=== PATIENT | male | born 1985 | race Caucasian/White ===

== ENCOUNTER 2018-06-02 21:25 | Inpatient (IN) | payer OTHER ==
[2018-06-03 02:45] LABS: ALT 49 U/L (21-72); AST 37 U/L (17-59); Albumin 4.6 g/dL (3.5-5.0); Alkaline Phosphatase 43 U/L (38-126); Anion Gap 13 mmol/L; Basophils % (A) 1 %; Blood Urea Nitrogen 15 mg/dL (9-20); Calcium 9.4 mg/dL (8.4-10.2); Carbon Dioxide 24 mmol/L (22-30); Chloride 104 mmol/L (98-107); Eosinophils # (A) 0.1 k/uL (0-0.7); Eosinophils % (A) 1 %; Glucose 82 mg/dL (74-99); HCT 48.6 % (39.0-53.0); Lymphocytes # (A) 2.7 k/uL (1.0-4.8); Lymphocytes % (A) 31 %; MCH 28.5 pg (25.0-35.0); MCV 86.4 fL (80.0-100.0); Mean Platelet Volume 7.8; Monocytes # (A) 0.5 k/uL (0-1.0); Monocytes % (A) 6 %; Neutrophils # (A) 5.3 k/uL (1.3-7.7); Neutrophils % (A) 60 %; Phosphorus 4.1 mg/dL (2.5-4.5); Platelet Count 210 k/uL (150-450); Potassium 4.1 mmol/L (3.5-5.1); RBC 5.63 m/uL (4.30-5.90); RDW 12.7 % (11.5-15.5); Sodium 141 mmol/L (137-145); Total Bilirubin 1.7 mg/dL (0.2-1.3); Total Protein 7.4 g/dL (6.3-8.2); WBC 8.8 k/uL (3.8-10.6)
[2018-06-03] MEDS ORDERED: VANCOMYCIN 1,750 MG in SODIUM CHLORIDE 0.9% 500 ML 500 ML IVPB ONE (03:00)
[2018-06-03] MEDS ORDERED: NALOXONE 0.4 MG/ML 1 ML VIAL IV PRN (07:04)
--- NOTE | 2018-06-03 07:20 | P.HPIM ---
History of Present Illness H&P Date: 06/03/18 Chief Complaint: Finger swelling 32-year-old male with no significant past medical history.. Patient presented the hospital with 6 day history of swollen left index finger patient reports that started as a small skin tag around the nail of the left index finger, that he was trying to remove ended up biting it to remove it and then later on he noticed that the nail bed was getting swollen painful and red he started taking [id number] pain medications without much benefit. Yesterday [facility] him B[facility] I recommended for him to go to the hospital. Patient reports associated chills but no fevers. Otherwise no similar symptoms in the past, denies any loss of function in his left. In the ER I&D was performed, he was started on antibiotic and admitted for orthopedic evaluation. Otherwise patient denies any chest pain trouble breathing fevers, nausea vomiting abdominal pain diarrhea, or any focal neurologic deficits. Review of Systems Pertinent positives as noted in HPI. All other systems were reviewed and are negative Past Medical History Additional Past Medical History / Comment(s): insomnia, "eating disorder- compulsive eater" History of Any Multi-Drug Resistant Organisms: None Reported Past Surgical History: Orthopedic Surgery, Tonsillectomy Additional Past Surgical History / Comment(s): right elbow Past Psychological History: Depression Smoking Status: Former smoker Past Alcohol Use History: Rare Past Drug Use History: Marijuana - Past Family History family Family Medical History: No Reported History Medications and Allergies Home Medications Medication Instructions Recorded Confirmed Type No Known Home Medications 02/04/15 02/04/15 History Allergies Allergy/AdvReac Type Severity Reaction Status Date / Time No Known Allergies Allergy Verified 02/04/15 19:04 Physical Exam Vitals: Intake and Output 06/02/18 06/03/18 06/03/18 22:59 06:59 14:59 Other: Weight 113 kg Constitutional: No acute distress, conversant, pleasant Eyes: Anicteric sclerae, moist conjunctiva, no lid-lag Pupils equal round reactive to light ENMT: NC/AT Oropharynx clear, no erythema, exudates Neck: Supple, FROM, no masses, or JVD No carotid bruits No thyromegaly Lungs: Clear to auscultation Clear to percussion Normal respiratory effort, no accessory muscle use Cardiovascular: Heart regular in rate and rhythm, No murmurs, gallops, or rubs No peripheral edema Abdominal: Soft Nontender, no guarding, rebound or rigidity Abdomen moving with respiration Normoactive bowel sounds No hepatomegaly, No splenomegaly No palpable mass No abdominal wall hernia noted Skin: There is swelling of the distal phalanx of the left index finger tender to palpation status post I&D capillary refill is immediate sensation is intact. Continues to drain pus. Otherwise, Normal temperature, tone, texture, turgor No induration No subcutaneous nodules No rash, lesions No ulcers Extremities: No digital cyanosis No clubbing Pedal pulses intact and symmetrical Radial pulses intact and symmetrical No calf tenderness Psychiatric: Alert and oriented to person, place and time Appropriate affect fair judgment Neuro Muscles Strength 5/5 in all 4 extremities Sensation to light touch grossly present throughout Cranial nerves II-XII grossly intact No focal sensory deficits Lymphatics: no palpable cervical or supraclavicular , or inguinal lymph nodes Results CBC & Chem 7: 06/03/18 00:03 06/03/18 00:03 Labs: Abnormal Lab Results - Last 24 Hours (Table) 06/03/18 Range/Units 00:03 Total Bilirubin 1.7 H (0.2-1.3) mg/dL Assessment and Plan Assessment: 32-year-old male with no significant past medical history admitted under observation with anticipated length of stay less than 48 hours due to abscess of the left index finger of 6 days' duration and worsening pain. Patient underwent I&D in the ED and was admitted for further evaluation by or so patient was started on antibiotics Plan: Paronychia, with abscess formation s/p I & D Status post I&D Discontinue Vanco, start patient on Unasyn Pain control Or the consult Obesity DVT prophylaxis Heparin subcu 3 times a day Surrogate decision-maker: Patient mother CODE STATUS:*Full code Discussed with: Patient, ER, RN Anticipated discharge: <[address]: Home A total of 60 minutes was spent on the care of this complex patient more than 50 % of the time was spent in counseling and care coordination.
[2018-06-03] MEDS: AMPICILLIN-SULBACTAM 3 GM in SODIUM CHLORIDE 0.9% 100 ML IVPB SCH ×3 (08:01→21:17)
[2018-06-03] MEDS ORDERED: INFLUENZA VACCINE (6 MOS+) 60 MCG/0.5 ML SYRINGE IM ONE (08:28)
--- NOTE | 2018-06-03 10:28 | P.CNOR ---
History of Present Illness - [facility] Consult date: 06/03/18 History of present illness: This is a 32 year old male with no significant past medical history that presented to the ER last night for a left index finger abscess. The patient states he was seen at [facility] yesterday for finger pain and swelling with 6 days duration. Patient states it began after he was biting his fingernails, there was no other significant trauma to this finger. He states the provider at [facility] performed an I&D of the abscess, and started him on Bactrim. They also took xrays of the left hand at [facility]. The provider was concerned about the infection being deeper and therefore recommended he been seen in the ER. ER also tried to perform an I&D, and patient states they were unable to express any material out. Patient states he only took one tab of the Bactrim. He denies chest pain, shortness of breath, nausea, vomiting, fevers, or chills. Past Medical History Additional Past Medical History / Comment(s): insomnia History of Any Multi-Drug Resistant Organisms: None Reported Past Surgical History: Orthopedic Surgery, Tonsillectomy Additional Past Surgical History / Comment(s): right elbow shattered with surgical repair/hardware, perineal cystectomy Past Anesthesia/Blood Transfusion Reactions: No Reported Reaction Smoking Status: Former smoker - Past Family History Mother Additional Family Medical History / Comment(s): Mother is an alcoholic Father Family Medical History: No Reported History Additional Family Medical History / Comment(s): Father is healthy family Family Medical History: No Reported History Medications and Allergies Home Medications Medication Instructions Recorded Confirmed Type Ibuprofen [Motrin Ib] 800 mg PO TID PRN 06/03/18 06/03/18 History Allergies Allergy/AdvReac Type Severity Reaction Status Date / Time No Known Allergies Allergy Verified 02/04/15 19:04 Physical Examination On exam, patient is lying in bed in no acute distress. He is alert and orientated x3. His left index finger is dressed, dressing was taken down and there is swelling and erythema of the distal finger surrounding the nail, there are multiple small opening in the skin. No active drainage. No fluctuance noted. Patient able to perform active ROM of left index finger, pain noted on passive and active ROM. Results - Labs Labs: Abnormal Lab Results - Last 24 Hours (Table) 06/03/18 Range/Units 00:03 Total Bilirubin 1.7 H (0.2-1.3) mg/dL H & H 06/03/18 Range/Units 00:03 Hgb 16.0 (13.0-17.5) gm/dL Hct 48.6 (39.0-53.0) % Result Diagrams: 06/03/18 00:03 06/03/18 00:03 Assessment and Plan Assessment: Finger abscess Plan: - Will plan for a formal I & D in the operating room this afternoon with Dr. Vick. - NPO ordered placed. - Continue IV antibiotics. Dr. Nguyen consulted for ID recommendations. Warm water soaks. - Cultures were ordered by [facility] at patient's visit last night, will continue to follow these results.
--- NOTE | 2018-06-03 14:01 | P.PN ---
Progress Note - Text Progress Note Date: 06/03/18 Please refer to the H&P for full note. 32 year old male with no past medical history presents the ED for worsening of his left index finger swelling, erythema and discharge. Patient reports biting his hangnail on Wednesday prior to experiencing the above symptoms. Was seen in the ED and admitted for cellulitis/paronychia of the left index finger, IV antibiotics and orthopedic evaluation. Patient seen and examined at 1:45 PM on 06/03/2018. He denies any pain at this time. No fever or chills. He has been evaluated by orthopedic surgery and is agreeable for incision and drainage later today. We'll continue IV antibiotics and offer him adequate pain management. Patient continues to remain afebrile and did not have a leukocytosis this morning. If the patient shows sign of improvement by tomorrow, hopefully he can be discharged with a follow up with PCP and Hand surgery.
[2018-06-03] MEDS ORDERED: VANCOMYCIN 1,750 MG in SODIUM CHLORIDE 0.9% 500 ML 500 ML IVPB SCH (15:00)
[2018-06-03] MEDS ORDERED: IV FLUID CONTINUATION 1,000 ML IV ONE (17:11)
[2018-06-03] MEDS ORDERED: GLYCOPYRROLATE 0.2 MG/ML 2 ML VIAL ONE (18:15)
[2018-06-03] MEDS ORDERED: KETAMINE 10 MG/ML 20 ML VIAL ONE (18:15)
[2018-06-03] MEDS ORDERED: PROPOFOL 10 MG/ML 20 ML VIAL IV ONE (18:15)
[2018-06-03] MEDS ORDERED: MIDAZOLAM 2 MG/2 ML VIAL ONE (18:15)
[2018-06-03] MEDS ORDERED: fentaNYL (PF) 50 MCG/ML 2 ML AMP ONE (18:15)
[2018-06-03] MEDS ORDERED: LIDOCAINE 2% (PF) 20 MG/ML 2 ML VIAL SQ ONE (18:29)
--- NOTE | 2018-06-03 18:44 | P.OP ---
Date of Procedure: 06/03/18 Preoperative Diagnosis: 1. Acute paronchyia, left index finger 2. Cigarette smoking Postoperative Diagnosis: 1. Acute paronchyia, left index finger 2. History of cigarette smoking, last cigarette 3.5 weeks ago Procedure(s) Performed: 1. Incision and drainage left index finger Anesthesia: MAC Surgeon: Ky Vick Estimated Blood Loss (ml): 5 IV fluids (ml): 500 Pathology: other (Cultures) Condition: stable Disposition: PACU Indications for Procedure: The patient is a 32-year-old male with a medical history significant for smoking cigarettes his last cigarette 3 weeks ago was admitted with a paronychial infection and his left index finger. The patient states that he chronically bites his fingernails and developed a left index finger infection the progressively worsened. He was seen at an urgent care center were local wound care and an attempt at incision and drainage was performed. He presented to the emergency department yesterday where he was found to have worsening infection in his left index finger. An attempt was made and incision and drainage from when he was admitted for antibiotics and an orthopedics consultation. I met with the patient this evening. He was found to have a paronychial infection and large abscess the paronychial fold of his left index finger. I recommended incision and drainage in the operating room. We also discussed getting deep cultures. We discussed potential risks and indications of the procedure including but not limited to worsening infection, damage to local blood vessels or nerves, stiffness in the index finger, decreased function the left hand, spreading of the infection proximally in his arm, need for further surgery including amputation. We'll defer all wound management and antibiotic recommendations to infectious disease. The patient provided his consent to go forward with surgery. Description of Procedure: The patient was identified in preoperative holding and the correct left index finger was marked with my initials. I reviewed the consent form with the patient and all his questions were answered. The patient was brought to the operating room by anesthesia. He was positioned on the gurney with his left arm under an arm table. The left arm was prepped and draped in the standard sterile fashion. Prior to starting surgery timeout was performed identifying the correct patient, operative extremity, and procedure. A tourniquet was applied proximal aspect of the left arm but was not used. After the finger and hand were prepped on inspection there is paronychia swelling along the radial ulnar borders and the patient's the nail. A digital block was performed using 2% lidocaine without epinephrine. Incisions were made extending the paronychial falls proximally along the radial and ulnar border of the fingernail. The paronychial fold was elevated and a small amount of purulence was expressed. A hemostat was used make sure there were not any collections of pus along the paronychial fold. The wound was copiously irrigated. A single nylon stitch was placed along both incisions loosely approximating them but still allowing them to drain. A sterile dressing was applied. The patient was awoken from his sedation and transferred to recovery without procedure well. Plan: The patient's paronychial infection has been thoroughly decompressed and deep cultures have been taken. I will defer to infectious disease and the primary care service for antibiotic recommendations and wound care. He would benefit from warm water soaks and whirlpool treatments. Orthopedics will follow peripherally.
[2018-06-03] MEDS ORDERED: HYDROmorphone 1 MG/ML 1 ML SYRINGE IVP ONE ×2 (19:07→19:41)
[2018-06-03] MEDS ORDERED: LACTATED RINGERS 1,000 ML IV ONE ×2 (19:58)
--- NOTE | 2018-06-03 22:39 | P.CONS ---
History of Present Illness - Reason for Consult Consult date: 06/03/18 - Chief Complaint Pain left index finger - History of Present Illness Pleasant 32-year-old male who has a history of nail biting, developed increasing pain and swelling to the index finger distal phalanx over the last several days. Was seen in the outpatient clinic and despite this had no improvement. Was seen emergency center and despite an attempt for incision and drainage she was not successful. Given his difficulties a patient is brought in the hospital for incision and drainage through orthopedics as well as antibiotic therapy. We discussed with the patient the importance of changing his very persistent habit. He fortunately is not having high-grade fevers chills rigors or sweats but the site is quite painful. Breasts the nails are without difficulty. Denies other acute symptoms. Review of Systems HEENT:Denies headache or acute visual change. Denies sinus or mouth discomforts. Denies neck stiffness or pain. Denies significant oral cavity pain. Denies difficulty on swallowing. Lungs: Denies significant shortness of breath, cough, sputum production, or hemoptysis. Cardiovascular: Denies significant shortness of breath, chest pain, chest wall pain, orthopnea, dyspnea on exertion, syncope Gastrointestinal:Denies nausea, vomiting, diarrhea, constipation, hematemesis, melena, hematochezia. No no significant change of bowel habit noticed. Musculoskeletal: denies significant myalgias or arthralgias. No new joint swelling. Denies new back pain. Skin: As per the HPI Neuro: Denies headache or visual change. Denies any new onset weakness or difficulty with ambulation. Denies falls or seizures. Psychiatric:Denies anxiety or depression. Endocrine: Denies significant fatigue, denies significant weight loss or weight gain. Past Medical History Additional Past Medical History / Comment(s): insomnia History of Any Multi-Drug Resistant Organisms: None Reported Past Surgical History: Orthopedic Surgery, Tonsillectomy Additional Past Surgical History / Comment(s): right elbow shattered with surgical repair/hardware, perineal cystectomy Past Anesthesia/Blood Transfusion Reactions: No Reported Reaction Additional Psychological History / Comment(s): Single lives with family. 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 No experience. The international travel. No animal exposures. No change in environment Smoking Status: Former smoker - Past Family History Mother Additional Family Medical History / Comment(s): Mother is an alcoholic Father Family Medical History: No Reported History Additional Family Medical History / Comment(s): Father is healthy family Family Medical History: No Reported History Medications and Allergies Home Medications and Allergies Comment(s): Current Medications Ampicillin Sodium/Sulbactam (Sodium 3 gm/ Sodium Chloride) 100 mls @ 200 mls/ hr IVPB Q6HR UTE Last Admin: 06/03/18 21:17 Dose: 200 mls/hr Ketorolac Tromethamine (Toradol) 30 mg IVP Q6HR PRN PRN Reason: Moderate Pain Stop: 06/08/18 07:05 Naloxone HCl (Narcan) 0.2 mg IV Q2M PRN PRN Reason: Opioid Reversal Home Medications Medication Instructions Recorded Confirmed Type Ibuprofen [Motrin Ib] 800 mg PO TID PRN 06/03/18 06/03/18 History Allergies Allergy/AdvReac Type Severity Reaction Status Date / Time No Known Allergies Allergy Verified 02/04/15 19:04 Physical Exam Vitals: Vital Signs Temp Pulse Pulse Resp BP BP Pulse Ox 06/03/18 21:55 97.3 F L 80 18 108/65 94 L 06/03/18 21:40 97.5 F L 67 18 132/84 94 L 06/03/18 20:20 52 L 16 133/97 96 06/03/18 19:49 61 16 152/78 96 06/03/18 19:34 55 L 16 154/84 97 06/03/18 19:19 67 16 150/80 98 06/03/18 19:04 66 16 152/82 97 06/03/18 18:49 97 F L 67 13 144/91 100 06/03/18 17:10 97.8 F 66 16 126/71 97 06/03/18 12:45 97.9 F 66 18 137/80 98 06/03/18 11:22 18 06/03/18 08:05 97.8 F 58 L 18 123/82 95 Intake and Output 06/03/18 06/03/18 06/03/18 06:59 14:59 22:59 Intake Total 950 Output Total 10 Balance 940 Intake: IV 950 Output: Estimated Blood Loss 10 Other: # Voids 1 Weight 113 kg 155.4 kg HEENT: Anicteric conjunctiva are pink and moist nasal mucosa grossly intact without significant lesions, there is no thrush. Neck: The neck is supple without significant lymphadenopathy or thyromegaly. Lungs: Good bilateral air entry without significant crackles or wheezing. There is no significant bronchial sounds. There is no egophony or dullness. Heart: Regular rate and rhythm with an audible S1-S2, no S3 no S4. There is no significant murmur click or rub, PMI was nondisplaced. Abdomen: Positive bowel sounds soft and nontender without palpable masses or organomegaly. There was no guarding or rebound. Extremities: The right upper extremity is no acute abnormality is. Left upper extremities she doesn't extensive swelling to the index finger distal phalanx with significant amount of purulence swelling tenderness warmth and erythema there is minimal ascending erythema on the digit no significant redness to the wrist or forearm. No epitrochlear or axillary lymphadenopathy. No other abnormal lymph nodes noted lower extremities without edema. Neuro: Awake alert oriented to person place and time. There are no acute new gross focal sensory motor deficits. Results CBC & Chem 7: 06/03/18 00:03 06/03/18 00:03 Labs: Abnormal Lab Results - Last 24 Hours (Table) 06/03/18 Range/Units 00:03 Total Bilirubin 1.7 H (0.2-1.3) mg/dL Laboratory Results WBC 8.8 k/uL (3.8-10.6) 06/03/18 00:03 RBC 5.63 m/uL (4.30-5.90) 06/03/18 00:03 Hgb 16.0 gm/dL (13.0-17.5) 06/03/18 00:03 Hct 48.6 % (39.0-53.0) 06/03/18 00:03 MCV 86.4 fL (80.0-100.0) 06/03/18 00:03 MCH 28.5 pg (25.0-35.0) 06/03/18 00:03 MCHC 33.0 g/dL (31.0-37.0) 06/03/18 00:03 RDW 12.7 % (11.5-15.5) 06/03/18 00:03 Plt Count 210 k/uL (150-450) 06/03/18 00:03 Neutrophils % 60 % 06/03/18 00:03 Lymphocytes % 31 % 06/03/18 00:03 Monocytes % 6 % 06/03/18 00:03 Eosinophils % 1 % 06/03/18 00:03 Basophils % 1 % 06/03/18 00:03 Neutrophils # 5.3 k/uL (1.3-7.7) 06/03/18 00:03 Lymphocytes # 2.7 k/uL (1.0-4.8) 06/03/18 00:03 Monocytes # 0.5 k/uL (0-1.0) 06/03/18 00:03 Eosinophils # 0.1 k/uL (0-0.7) 06/03/18 00:03 Basophils # 0.0 k/uL (0-0.2) 06/03/18 00:03 Sodium 141 mmol/L (137-145) 06/03/18 00:03 Potassium 4.1 mmol/L (3.5-5.1) 06/03/18 00:03 Chloride 104 mmol/L (98-107) 06/03/18 00:03 Carbon Dioxide 24 mmol/L (22-30) 06/03/18 00:03 Anion Gap 13 mmol/L 06/03/18 00:03 BUN 15 mg/dL (9-20) 06/03/18 00:03 Creatinine 0.69 mg/dL (0.66-1.25) 06/03/18 00:03 Est GFR (CKD-EPI)AfAm >90 (>60 ml/min/1.73 sqM) 06/03/18 00:03 Est GFR (CKD-EPI)NonAf >90 (>60 ml/min/1.73 sqM) 06/03/18 00:03 Glucose 82 mg/dL (74-99) 06/03/18 00:03 Calcium 9.4 mg/dL (8.4-10.2) 06/03/18 00:03 Phosphorus 4.1 mg/dL (2.5-4.5) 06/03/18 00:03 Magnesium 2.0 mg/dL (1.6-2.3) 06/03/18 00:03 Total Bilirubin 1.7 mg/dL (0.2-1.3) H 06/03/18 00:03 AST 37 U/L (17-59) 06/03/18 00:03 ALT 49 U/L (21-72) 06/03/18 00:03 Alkaline Phosphatase 43 U/L (38-126) 06/03/18 00:03 Total Protein 7.4 g/dL (6.3-8.2) 06/03/18 00:03 Albumin 4.6 g/dL (3.5-5.0) 06/03/18 00:03 Assessment and Plan (1) Paronychia of finger of left hand Narrative/Plan: 32-year-old male presents to the emergency center after having been seen in the outpatient setting because of significant pain and swelling to the left index finger at the base of the nail. This related that there was an outpatient attempts for incision and drainage with was not successful and also was not successful emergency center. Physical is part in the hospital for care under orthopedic surgery and will go to the operating room later this afternoon. Antibiotic therapy with Unasyn is being utilized at this time. He has no known history of MRSA or of Pseudomonas. Cultures will further help direct antibiotic therapy. Patient believes is up-to-date with his tetanus. We'll take a multivitamin with zinc Tobis healing process. We discussed at length maneuvers to try to improve his anxiety. He has been treated with multiple medications in the past because he does have some depression and anxiolytics as well as SSRTI do not help him. He relates that he also has been diagnosed was ADHD medicines such as Adderall only significantly worsen his symptoms. We discussed that there are some paint on products that can be used to help avoid placing fingers into the mouth. There similar to a nail swedish but are painted on the entire tip of the fingers with extremely bitter taste that will help with some aversion therapy to help break the current habit. Current Visit: Yes Status: Acute Code(s): L03.012 - CELLULITIS OF LEFT FINGER SNOMED Code(s): 362549186
[2018-06-04] MEDS: AMPICILLIN-SULBACTAM 3 GM in SODIUM CHLORIDE 0.9% 100 ML IVPB SCH ×5 (00:22→23:39)
[2018-06-04] MEDS: KETOROLAC 30 MG/ML 1 ML VIAL IVP PRN ×2 (09:14→15:10)
[2018-06-04 09:49] VITALS: BMI 38.6
--- NOTE | 2018-06-04 10:35 | P.PN ---
Subjective Progress Note Date: 06/04/18 This is a 32-year-old male who is status post incision and drainage of the left index finger. This is postoperative day #1. Patient states that his pain is controlled. Patient denies any new complaints today. Patient denies any fever/ chills, numbness, weakness, tingling, abdominal pain, shortness of breath or chest pain. Objective - Vital Signs Vital signs: Vital Signs Temp 97.5 F L 06/04/18 07:00 Pulse 76 06/04/18 07:00 Resp 18 06/04/18 07:00 BP 125/78 06/04/18 07:00 Pulse Ox 95 06/04/18 07:00 Intake & Output 06/03/18 06/04/18 06/04/18 18:59 06:59 18:59 Intake Total 300 2150 Output Total 10 Balance 290 2150 Weight 155.4 kg 159.5 kg 159.5 kg Intake: IV 300 650 Oral 1500 Output: Estimated Blood Loss 10 Other: # Voids 1 0 - Exam On exam patient is sitting comfortably in bed in no acute distress. Dressing is removed. There is swelling and mild drainage from the distal aspect of the left index finger. Sutures are intact. Sensation intact. Neurovascular status and circulatory status are intact. - Labs CBC & Chem 7: 06/03/18 00:03 06/03/18 00:03 Labs: Microbiology - Last 24 Hours (Table) 06/03/18 18:30 Gram Stain - Preliminary Finger - Left Second Wound Culture - Preliminary 06/03/18 00:03 Blood Culture - Preliminary Blood No Growth after 24 hours 06/03/18 18:30 Anaerobic Culture - Preliminary Finger - Left Second Assessment and Plan (1) Status post incision and drainage Current Visit: Yes Status: Acute Code(s): Z98.890 - OTHER SPECIFIED POSTPROCEDURAL STATES SNOMED Code(s): 148954835 (2) Paronychia of finger of left hand Current Visit: Yes Status: Acute Code(s): L03.012 - CELLULITIS OF LEFT FINGER SNOMED Code(s): 352554371 Plan: 1. Continue routine postoperative care and pain control. 2. Warm water soaks and daily dressing changes. 3. Wound care and antibiotics per infectious disease. 4. Will continue to follow the patient as needed.
--- NOTE | 2018-06-04 14:18 | P.PN ---
Subjective Progress Note Date: 06/04/18 Principal diagnosis: Finger abscess Patient was seen and examined. No acute events overnight. Patient with no complaints this morning. Minimal pain, well-controlled with medication. No fever or chills. Patient reports visual improvement in his left index finger. Requesting when he can go home. Objective - Vital Signs Vital signs: Vital Signs Temp 97.5 F L 06/04/18 07:00 Pulse 76 06/04/18 07:00 Resp 18 06/04/18 07:00 BP 125/78 06/04/18 07:00 Pulse Ox 95 06/04/18 07:00 Intake & Output 06/03/18 06/04/18 06/04/18 18:59 06:59 18:59 Intake Total 300 2150 Output Total 10 Balance 290 2150 Weight 155.4 kg 159.5 kg 159.5 kg Intake: IV 300 650 Oral 1500 Output: Estimated Blood Loss 10 Other: # Voids 1 0 - Exam General: [non toxic], [no distress], [appears at stated age] Derm: [warm], [dry] Head: [atraumatic], [normocephalic], [symmetric] Eyes: [EOMI], [no lid lag], [anicteric sclera] Mouth: [no lip lesion], [mucus membranes moist] Cardiovascular: [S1S2 reg], [no murmur], [positive DP pulse bilateral] Lungs: [CTA bilateral], [no rhonchi, no rales] , [no accessory muscle use] Ext: [no gross muscle atrophy], [no edema], [no contractures], [left index finger wrapped, limited range of motion due to pain, good capillary refill, 2+ radial pulse] Psych: [Alert], [oriented], [appropriate affect] - Labs CBC & Chem 7: 06/03/18 00:03 06/03/18 00:03 Labs: Microbiology - Last 24 Hours (Table) 06/03/18 18:30 Gram Stain - Preliminary Finger - Left Second Wound Culture - Preliminary 06/03/18 00:03 Blood Culture - Preliminary Blood No Growth after 24 hours 06/03/18 18:30 Anaerobic Culture - Preliminary Finger - Left Second Assessment and Plan Assessment: Assessment and Plan Paronychia of the left index finger We will continue IV antibiotics at this time Left hand elevation Pain management with Toradol as needed Status post I&D of the left index finger by orthopedic surgery, recommending warm water soaks and daily dressing changes Continue present management. Will evaluate tomorrow. We'll need to follow-up wound culture results to tailor antibiotics. Blood cultures preliminary negative at 24 hours. Possible DC in 1-2 days, depending on orthopedic recommendations.
--- NOTE | 2018-06-04 16:12 | P.PN ---
Subjective Progress Note Date: 06/04/18 Pleasant 32-year-old male who has a history of nail biting, developed increasing pain and swelling to the index finger distal phalanx over the last several days. Was seen in the outpatient clinic and despite this had no improvement. Was seen emergency center and despite an attempt for incision and drainage she was not successful. Given his difficulties a patient is brought in the hospital for incision and drainage through orthopedics as well as antibiotic therapy. We discussed with the patient the importance of changing his very persistent habit. He fortunately is not having high-grade fevers chills rigors or sweats but the site is quite painful. Breasts the nails are without difficulty. Denies other acute symptoms. 06/04/2018 patient is doing better status post surgery. His pain is under MRSA good control. Has been evaluated by orthopedics today. The and will undergo further warm soaks today. If further improved tomorrow may then be a candidate for discharge to home. Objective - Vital Signs Vital signs: Vital Signs Temp 97.9 F 06/04/18 14:45 Pulse 72 06/04/18 14:45 Resp 16 06/04/18 14:45 BP 122/79 06/04/18 14:45 Pulse Ox 96 06/04/18 14:45 Intake & Output 06/03/18 06/04/18 06/04/18 18:59 06:59 18:59 Intake Total 300 2150 Output Total 10 Balance 290 2150 Weight 155.4 kg 159.5 kg 159.5 kg Intake: IV 300 650 Oral 1500 Output: Estimated Blood Loss 10 Other: # Voids 1 0 2 - Exam HEENT: Anicteric conjunctiva are pink and moist nasal mucosa grossly intact without significant lesions, there is no thrush. Neck: The neck is supple without significant lymphadenopathy or thyromegaly. Lungs: Good bilateral air entry without significant crackles or wheezing. There is no significant bronchial sounds. There is no egophony or dullness. Heart: Regular rate and rhythm with an audible S1-S2, no S3 no S4. There is no significant murmur click or rub, PMI was nondisplaced. Abdomen: Positive bowel sounds soft and nontender without palpable masses or organomegaly. There was no guarding or rebound. Extremities: The right upper extremity is no acute abnormality is. Left upper extremities reveals the surgical intervention to the index finger there are some sutures in place still some swelling scant drainage is noted pulp press tender so surrounding erythema but improved No epitrochlear or axillary lymphadenopathy. No other abnormal lymph nodes noted lower extremities without edema. Neuro: Awake alert oriented to person place and time. There are no acute new gross focal sensory motor deficits. - Labs CBC & Chem 7: 06/03/18 00:03 06/03/18 00:03 Labs: Microbiology - Last 24 Hours (Table) 06/03/18 18:30 Gram Stain - Preliminary Finger - Left Second Wound Culture - Preliminary 06/03/18 00:03 Blood Culture - Preliminary Blood No Growth after 24 hours 06/03/18 18:30 Anaerobic Culture - Preliminary Finger - Left Second Laboratory Results WBC 8.8 k/uL (3.8-10.6) 06/03/18 00:03 RBC 5.63 m/uL (4.30-5.90) 06/03/18 00:03 Hgb 16.0 gm/dL (13.0-17.5) 06/03/18 00:03 Hct 48.6 % (39.0-53.0) 06/03/18 00:03 MCV 86.4 fL (80.0-100.0) 06/03/18 00:03 MCH 28.5 pg (25.0-35.0) 06/03/18 00:03 MCHC 33.0 g/dL (31.0-37.0) 06/03/18 00:03 RDW 12.7 % (11.5-15.5) 06/03/18 00:03 Plt Count 210 k/uL (150-450) 06/03/18 00:03 Neutrophils % 60 % 06/03/18 00:03 Lymphocytes % 31 % 06/03/18 00:03 Monocytes % 6 % 06/03/18 00:03 Eosinophils % 1 % 06/03/18 00:03 Basophils % 1 % 06/03/18 00:03 Neutrophils # 5.3 k/uL (1.3-7.7) 06/03/18 00:03 Lymphocytes # 2.7 k/uL (1.0-4.8) 06/03/18 00:03 Monocytes # 0.5 k/uL (0-1.0) 06/03/18 00:03 Eosinophils # 0.1 k/uL (0-0.7) 06/03/18 00:03 Basophils # 0.0 k/uL (0-0.2) 06/03/18 00:03 Sodium 141 mmol/L (137-145) 06/03/18 00:03 Potassium 4.1 mmol/L (3.5-5.1) 06/03/18 00:03 Chloride 104 mmol/L (98-107) 06/03/18 00:03 Carbon Dioxide 24 mmol/L (22-30) 06/03/18 00:03 Anion Gap 13 mmol/L 06/03/18 00:03 BUN 15 mg/dL (9-20) 06/03/18 00:03 Creatinine 0.69 mg/dL (0.66-1.25) 06/03/18 00:03 Est GFR (CKD-EPI)AfAm >90 (>60 ml/min/1.73 sqM) 06/03/18 00:03 Est GFR (CKD-EPI)NonAf >90 (>60 ml/min/1.73 sqM) 06/03/18 00:03 Glucose 82 mg/dL (74-99) 06/03/18 00:03 Calcium 9.4 mg/dL (8.4-10.2) 06/03/18 00:03 Phosphorus 4.1 mg/dL (2.5-4.5) 06/03/18 00:03 Magnesium 2.0 mg/dL (1.6-2.3) 06/03/18 00:03 Total Bilirubin 1.7 mg/dL (0.2-1.3) H 06/03/18 00:03 AST 37 U/L (17-59) 06/03/18 00:03 ALT 49 U/L (21-72) 06/03/18 00:03 Alkaline Phosphatase 43 U/L (38-126) 06/03/18 00:03 Total Protein 7.4 g/dL (6.3-8.2) 06/03/18 00:03 Albumin 4.6 g/dL (3.5-5.0) 06/03/18 00:03 Microbiology 06/03/18 18:30 Finger - Left Second Gram Stain - Preliminary 06/03/18 18:30 Finger - Left Second Wound Culture - Preliminary 06/03/18 00:03 Blood Blood Culture - Preliminary No Growth after 24 hours 06/03/18 18:30 Finger - Left Second Anaerobic Culture - Preliminary Assessment and Plan (1) Paronychia of finger of left hand Narrative/Plan: 32-year-old male presents to the emergency center after having been seen in the outpatient setting because of significant pain and swelling to the left index finger at the base of the nail. This related that there was an outpatient attempts for incision and drainage with was not successful and also was not successful emergency center. Physical is part in the hospital for care under orthopedic surgery and will go to the operating room later this afternoon. Antibiotic therapy with Unasyn is being utilized at this time. He has no known history of MRSA or of Pseudomonas. Cultures will further help direct antibiotic therapy. Patient believes is up-to-date with his tetanus. We'll take a multivitamin with zinc Tobis healing process. We discussed at length maneuvers to try to improve his anxiety. He has been treated with multiple medications in the past because he does have some depression and anxiolytics as well as SSRTI do not help him. He relates that he also has been diagnosed was ADHD medicines such as Adderall only significantly worsen his symptoms. We discussed that there are some paint on products that can be used to help avoid placing fingers into the mouth. There similar to a nail yoruba but are painted on the entire tip of the fingers with extremely bitter taste that will help with some aversion therapy to help break the current habit. 06/04/2018 patient is feeling better status post surgery. Blood cultures are negative. Wound culture is pending cold back in the morning would expect to be ready for discharge home at that point in time with a course of outpatient oral antibiotic therapy since the time of surgery is no evidence of any bony involvement of the phalanx. Current Visit: Yes Status: Acute Code(s): L03.012 - CELLULITIS OF LEFT FINGER SNOMED Code(s): 407305990
[2018-06-04] MEDS ORDERED: DIPH,PERTUS(ACELL)TETVAC-LF 0.5 ML VIAL IM ONE (16:19)
[2018-06-05] MEDS: AMPICILLIN-SULBACTAM 3 GM in SODIUM CHLORIDE 0.9% 100 ML IVPB SCH ×4 (06:06→23:39)
--- NOTE | 2018-06-05 09:06 | P.PN ---
Subjective Progress Note Date: 06/05/18 This is a 32-year-old male who is status post incision and drainage of the left index finger. This is postoperative day #2. Patient states that the finger has been draining. Patient states that his pain is controlled and he denies any new complaints today. Patient denies any fever/chills, numbness, weakness, tingling , abdominal pain, shortness of breath or chest pain. Objective - Vital Signs Vital signs: Vital Signs Temp 97.7 F 06/05/18 07:00 Pulse 54 L 06/05/18 07:00 Resp 16 06/05/18 07:00 BP 125/83 06/05/18 07:00 Pulse Ox 96 06/05/18 07:00 Intake & Output 06/04/18 06/05/18 06/05/18 18:59 06:59 18:59 Weight 159.5 kg Other: # Voids 2 2 - Exam On exam patient is sitting comfortably in bed in no acute distress. Dressing is clean, dry and intact. Sensation intact. Neurovascular status and circulatory status are intact. - Labs CBC & Chem 7: 06/03/18 00:03 06/03/18 00:03 Labs: Microbiology - Last 24 Hours (Table) 06/03/18 00:03 Blood Culture - Preliminary Blood No Growth after 48 hours 06/03/18 18:30 Gram Stain - Preliminary Finger - Left Second Wound Culture - Preliminary Assessment and Plan (1) Status post incision and drainage Current Visit: Yes Status: Acute Code(s): Z98.890 - OTHER SPECIFIED POSTPROCEDURAL STATES SNOMED Code(s): 926842144 (2) Paronychia of finger of left hand Current Visit: Yes Status: Acute Code(s): L03.012 - CELLULITIS OF LEFT FINGER SNOMED Code(s): 528376623 Plan: 1. Continue routine postoperative care and pain control. 2. Warm water soaks and daily dressing changes. 3. Wound care and antibiotics per infectious disease. 4. Will continue to follow the patient as needed.
[2018-06-05] MEDS: KETOROLAC 30 MG/ML 1 ML VIAL IVP PRN (11:23)
--- NOTE | 2018-06-05 13:25 | P.PN ---
Subjective Progress Note Date: 06/05/18 Principal diagnosis: Left index finger paronychia Patient was seen and examined. No acute events overnight. Pain is well- controlled as per patient. No fever or chills. Patient reports improvement in the swelling and erythema of his left index finger. Wanting to go home. Objective - Vital Signs Vital signs: Vital Signs Temp 97.7 F 06/05/18 07:00 Pulse 54 L 06/05/18 08:00 Resp 16 06/05/18 08:00 BP 125/83 06/05/18 07:00 Pulse Ox 96 06/05/18 07:00 Intake & Output 06/04/18 06/05/18 06/05/18 18:59 06:59 18:59 Weight 159.5 kg Other: # Voids 2 2 2 - Exam General: [non toxic], [no distress], [appears at stated age] Derm: [warm], [dry] Head: [atraumatic], [normocephalic], [symmetric] Eyes: [EOMI], [no lid lag], [anicteric sclera] Mouth: [no lip lesion], [mucus membranes moist] Cardiovascular: [S1S2 reg], [no murmur], [positive DP pulse bilateral] Lungs: [CTA bilateral], [no rhonchi, no rales] , [no accessory muscle use] Ext: [no gross muscle atrophy], [no edema], [no contractures], [left index finger wrapped, limited range of motion due to pain, good capillary refill, 2+ radial pulse] Psych: [Alert], [oriented], [appropriate affect] - Labs CBC & Chem 7: 06/03/18 00:03 06/03/18 00:03 Labs: Microbiology - Last 24 Hours (Table) 06/03/18 00:03 Blood Culture - Preliminary Blood No Growth after 48 hours Assessment and Plan Assessment: Assessment and Plan Paronychia of the left index finger We will continue IV antibiotics at this time Left hand elevation Pain management with Toradol as needed Status post I&D of the left index finger by orthopedic surgery, recommending warm water soaks and daily dressing changes Continue present management. Will evaluate tomorrow. We'll need to follow-up wound culture results to tailor antibiotics. Blood cultures preliminary negative at 48 hours. Discharge after cultures come back.
[2018-06-06] MEDS: AMPICILLIN-SULBACTAM 3 GM in SODIUM CHLORIDE 0.9% 100 ML IVPB SCH (05:26)
[2018-06-06 06:22] VITALS: BP 90/56; PULSE 63; TEMP 93
--- NOTE | 2018-06-06 08:22 | P.DS ---
Providers Date of admission: 06/04/18 09:18 Expected date of discharge: 06/06/18 Attending physician: Yoly Montana MD Consults: 06/03/18 07:05 Consult Physician Routine Consulting Provider: Ky Vick Consult Reason/Comments: finger abscess Do you want consulting provider notified?: Yes 06/03/18 08:58 Consult Physician Routine Consulting Provider: Mauro Nguyen Consult Reason/Comments: Finger abscess Do you want consulting provider notified?: Yes Primary care physician: Stated None - Discharge Diagnosis(es) (1) Paronychia of finger of left hand Current Visit: Yes Status: Acute (2) Status post incision and drainage Current Visit: Yes Status: Acute Hospital Course: 32 year old male with no past medical history presents the ED for worsening of his left index finger swelling, erythema and discharge. Patient reports biting his hangnail on Wednesday prior to experiencing the above symptoms. Was seen in the ED and admitted for abscess/paronychia of the left index finger , IV antibiotics and orthopedic evaluation. With regard to his abscess, he was started on Ampicillin-Sulbactam IV. His pain was controlled with ketorolac IV. Orthopedic surgery was consulted and incision and drainage was performed. Infectious disease was consulted and recommended waiting for cultures to tailor antibiotics. Wound cultures grew out beta hemolytic streptococcus. Patient was afebrile with no leukocytosis thoughout his stay. Patient was discharged on 7 days of Augmentin to complete a total of 10 days of antibiotics. He was advised to follow up with Orthopedic surgery and primary care provider. Patient was seen and examined prior to discharge. He reports improvement in his left index finger. He denies fever or chills. Looking forward to going home. General: [non toxic], [no distress], [appears at stated age] Derm: [warm], [dry] Head: [atraumatic], [normocephalic], [symmetric] Eyes: [EOMI], [no lid lag], [anicteric sclera] Mouth: [no lip lesion], [mucus membranes moist] Cardiovascular: [S1S2 reg], [no murmur], [positive DP pulse bilateral] Lungs: [CTA bilateral], [no rhonchi, no rales] , [no accessory muscle use] Ext: [no gross muscle atrophy], [no edema], [no contractures], [left index finger, limited range of motion due to pain, good capillary refill, 2+ radial pulse] Psych: [Alert], [oriented], [appropriate affect] Assessment and Plan Paronychia of the left index finger Wound cultures grew beta hemolytic strep, ampicillin sulbactam IV discontinued and switched to oral Augmentin. Left hand elevation Pain management with Toradol as needed Status post I&D of the left index finger by orthopedic surgery, recommending warm water soaks and daily dressing changes We'll discharge today. Advised follow-up with primary care provider and orthopedic surgery with the appointment provided. Advised to continue antibiotics. Procedures: Incision and drainage Patient Condition at Discharge: Stable Plan - Discharge Summary Discharge Rx Participant: No New Discharge Prescriptions: New Amoxic-Pot Clav 875-125Mg [Augmentin 875-125] 1 tab PO Q12HR #14 tablet Continue Ibuprofen [Motrin Ib] 800 mg PO TID PRN PRN Reason: Pain Discharge Medication List Ibuprofen [Motrin Ib] 800 mg PO TID PRN 06/03/18 [History] Amoxic-Pot Clav 875-125Mg [Augmentin 875-125] 1 tab PO Q12HR #14 tablet [Rx] Follow up Appointment(s)/Referral(s): Mauro Nguyen MD [STAFF PHYSICIAN] - 1 Week None,Stated [Primary Care Provider] - 1 Week Ky Vick MD [Medical Doctor] - 1 Week Patient Instructions/Handouts: Paronychia (GEN) Activity/Diet/Wound Care/Special Instructions: warm water soaks BID, nonstick, kerlix activity as tolerated regular diet as tolerated Please follow up with your primary care provider within 1-2 days of discharge. Discharge Disposition: HOME SELF-CARE
--- NOTE | 2018-06-06 08:49 | P.PN ---
Subjective Progress Note Date: 06/06/18 This is a 32 year old male with no significant past medical history that is status post incision and drainage of the left index finger. This is post- operative day #3. The patient states his pain is well-controlled. He is really wanting to leave the hospital today. He denies chest pain, shortness of breath, nausea, vomiting, fever, chills. Objective - Vital Signs Vital signs: Vital Signs Temp 93.0 F L 06/06/18 06:22 Pulse 63 06/06/18 06:22 Resp 18 06/06/18 06:22 BP 90/56 06/06/18 06:22 Pulse Ox 96 06/06/18 06:22 Intake & Output 06/05/18 06/06/18 06/06/18 18:59 06:59 18:59 Intake Total 600 Balance 600 Intake: Oral 600 Other: # Voids 1 1 - Exam On exam, the patient is sitting up in bed eating breakfast. He is alert and orientated x3. On inspection of the left index finger, there are sutures in place. Mild erythema, no fluctuance, no active draining. Mild pain on active range of motion of left index finger. Neurovascular is intact of left upper extremity. +2 radial pulse bilaterally. Brisk capillary refill of left index finger. Sensation is intact to light touch of left hand. - Labs CBC & Chem 7: 06/03/18 00:03 06/03/18 00:03 Labs: Microbiology - Last 24 Hours (Table) 06/03/18 00:03 Blood Culture - Preliminary Blood No Growth after 72 hours 06/03/18 18:30 Anaerobic Culture - Preliminary Finger - Left Second 06/03/18 18:30 Gram Stain - Final Finger - Left Second Wound Culture - Final Beta Hemolytic Streptococcus F Assessment and Plan Assessment: Finger abscess s/p incision and drainage Plan: - Continue routine post-operative care and pain management. - Wound care and antibiotics per infectious disease. - Will continue to follow patient as he remains in the hospital. - Patient to follow up with Dr. Vick in the office 1 week after discharge.
[2018-06-06 09:29] VITALS: RESP 16
== END 2018-06-06 09:51 | disposition home or self-care (01) | DRG 603 ==
LOC: EC 21:25 → 1SOBS 06-03 00:10 → 4MS4W 06-03 20:38 → OBSVTOIN 06-04 09:18
PROVIDERS: ADMIT Internal Medicine; ATTEND Internal Medicine
PROC: 3E02340 Introduction of Influenza Vaccine into Muscle, Percutaneous Approach (ICD-10-PCS; 2018-06-03)
PROC: 0J9K0ZX Drainage of Left Hand Subcutaneous Tissue and Fascia, Open Approach, Diagnostic (ICD-10-PCS; principal; 2018-06-03 08:40)
PROC: 3E0234Z Introduction of Serum, Toxoid and Vaccine into Muscle, Percutaneous Approach (ICD-10-PCS; 2018-06-04)
DX: L02.512 Cutaneous abscess of left hand (principal); L03.012 Cellulitis of left finger; Z23 Encounter for immunization; F98.8 Other specified behavioral and emotional disorders with onset usually occurring in childhood and adolescence; G47.00 Insomnia, unspecified; F41.9 Anxiety disorder, unspecified; F32.9 Major depressive disorder, single episode, unspecified; F90.9 Attention-deficit hyperactivity disorder, unspecified type; E66.9 Obesity, unspecified; Z68.38 Body mass index [BMI] 38.0-38.9, adult; F17.210 Nicotine dependence, cigarettes, uncomplicated; Z71.6 Tobacco abuse counseling; Z86.59 Personal history of other mental and behavioral disorders; Z81.1 Family history of alcohol abuse and dependence
CPT/HCPCS: 36415; 80053; 83735; 84100; 85025; 87040; 87070; 87075; 87205; 90686; 90715; 96365; 96366; 96367; 99284

== ENCOUNTER 2018-08-03 17:50 | Emergency (ER) | payer OTHER ==
[2018-08-03 17:56] VITALS: BP 133/88; PULSE 84; RESP 18; TEMP 97.6
--- NOTE | 2018-08-03 18:16 | ED ---
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 He states he was wearing glasses and is unsure if any got in his eyes. He denies it splashing into his nose or mouth. He reports thoroughly washing his face and eyes after this. Denies any current vision changes, pain, burning, or rash. Patient denies any recent fever, chills, shortness of breath , chest pain, back pain, abdominal pain, nausea or vomiting, numbness or tingling, headaches, or any other complaints. - Related Data Home Medications Medication Instructions Recorded Confirmed Ibuprofen [Motrin Ib] 800 mg PO TID PRN 06/03/18 06/03/18 Previous Rx's Medication Instructions Recorded Amoxic-Pot Clav 875-125Mg 1 tab PO Q12HR #14 tablet 06/06/18 [Augmentin 875-125] Allergies Allergy/AdvReac Type Severity Reaction Status Date / Time No Known Allergies Allergy Verified 08/03/18 17:56 Review of Systems ROS Statement: Those systems with pertinent positive or pertinent negative responses have been documented in the HPI. ROS Other: All systems not noted in ROS Statement are negative. Past Medical History Additional Past Medical History / Comment(s): insomnia History of Any Multi-Drug Resistant Organisms: None Reported Past Surgical History: Orthopedic Surgery, Tonsillectomy Additional Past Surgical History / Comment(s): right elbow shattered with surgical repair/hardware, perineal cystectomy Past Anesthesia/Blood Transfusion Reactions: No Reported Reaction Past Psychological History: Anxiety, Depression Smoking Status: Former smoker Past Alcohol Use History: Occasional Past Drug Use History: None Reported - Past Family History Mother Additional Family Medical History / Comment(s): Mother is an alcoholic Father Family Medical History: No Reported History Additional Family Medical History / Comment(s): Father is healthy family Family Medical History: No Reported History General Exam Limitations: no limitations General appearance: alert, in no apparent distress Head exam: Present: atraumatic, normocephalic Eye exam: Present: normal appearance, PERRL, EOMI ENT exam: Present: normal exam, normal oropharynx, TM's normal bilaterally, normal external ear exam Neck exam: Present: normal inspection Respiratory exam: Present: normal lung sounds bilaterally. Absent: wheezes, rales, rhonchi Cardiovascular Exam: Present: regular rate, normal rhythm Neurological exam: Present: alert, oriented X3 Skin exam: Present: warm, dry Course Vital Signs 08/03/18 17:54 Temperature 97.6 F Pulse Rate 84 Respiratory 18 Rate Blood Pressure 133/88 O2 Sat by Pulse 99 Oximetry Medical Decision Making - Medical Decision Making Tdap given here 06/04/2018. No eye redness or visible rashes. Fluorescein stain eye exam is negative bilaterally. Patient has no symptoms at this time. Will discharge patient with follow-up to ophthalmology and [facility]. Patient is in agreement with this plan. Case discussed in detail with attending physician Dr. Pickering. Disposition Clinical Impression: Chemical exposure Disposition: HOME SELF-CARE Condition: Good Instructions (If sedation given, give patient instructions): Eye Wash (Into the eye) Additional Instructions: Follow-up with [facility] tomorrow. Follow-up with your PCP and ophthalmology in 1-2 days. Return to the emergency department if you have burning, pain or other concerning symptoms. Is patient prescribed a controlled substance at d/c from ED?: No Referrals: None,Stated [Primary Care Provider] - 1-2 days Petra De MD [STAFF PHYSICIAN] - 1-2 days Nisha Girard MD [STAFF PHYSICIAN] - 1-2 days Time of Disposition: 20:28
[2018-08-03] MEDS ORDERED: PROPARACAINE 0.5% OPHTH DROPS 15 ML BTL BOTH EYES STA (20:05)
== END 2018-08-03 20:44 | disposition home or self-care (01) ==
LOC: EC 17:50
DX: Z77.29 Contact with and (suspected) exposure to other hazardous substances (principal); Z87.891 Personal history of nicotine dependence
CPT/HCPCS: 99283

== ENCOUNTER 2018-08-09 12:27 | Emergency (ER) | payer OTHER ==
[2018-08-09 13:06] VITALS: BP 116/75; PULSE 75; RESP 16; TEMP 98
--- NOTE | 2018-08-09 13:07 | ED ---
General Adult HPI - General Chief complaint: Syncope Stated complaint: Syncope Time Seen by Provider: 08/09/18 12:32 Source: EMS, RN notes reviewed Mode of arrival: EMS Limitations: no limitations - History of Present Illness Initial comments: Patient 33-year-old male presenting to the emergency room today with chief complaint of syncopal episode. He was at his doctor's office today. He was getting his blood drawn when he was watching this and he passed out. Patient's doctor office was concerned they did call EMS. EMS recommended him coming here to emergency room. Patient states he feels completely fine. He has no complaints. States never passed out before. He does admit that he did not realize he was getting his blood drawn today and did not eat breakfast he thinks this may be related. Patient denies any other symptoms. Patient denies any recent fever, chills, shortness of breath, chest pain, back pain, abdominal pain, nausea or vomiting, numbness or tingling, headaches or visual changes, or any other complaints. - Related Data Home Medications Medication Instructions Recorded Confirmed No Known Home Medications 08/09/18 08/09/18 Allergies Allergy/AdvReac Type Severity Reaction Status Date / Time No Known Allergies Allergy Verified 08/09/18 12:48 Review of Systems ROS Statement: Those systems with pertinent positive or pertinent negative responses have been documented in the HPI. ROS Other: All systems not noted in ROS Statement are negative. Past Medical History Additional Past Medical History / Comment(s): insomnia History of Any Multi-Drug Resistant Organisms: None Reported Past Surgical History: Orthopedic Surgery, Tonsillectomy Additional Past Surgical History / Comment(s): right elbow shattered with surgical repair/hardware, perineal cystectomy Past Anesthesia/Blood Transfusion Reactions: No Reported Reaction Past Psychological History: Anxiety, Depression Smoking Status: Former smoker Past Alcohol Use History: None Reported Past Drug Use History: None Reported - Past Family History Mother Additional Family Medical History / Comment(s): Mother is an alcoholic Father Family Medical History: No Reported History Additional Family Medical History / Comment(s): Father is healthy family Family Medical History: No Reported History General Exam - General Exam Comments Initial Comments: General: The patient is awake and alert, in no distress, and does not appear acutely ill. Eye: Pupils are equal, round and reactive to light, extra-ocular movements are intact. No nystagmus. There is normal conjunctiva bilaterally. No signs of icterus. Ears, nose, mouth and throat: There are moist mucous membranes and no oral lesions. Neck: The neck is supple, there is no tenderness or JVD. Cardiovascular: There is a regular rate and rhythm. No murmur, rub or gallop is appreciated. Respiratory: Lungs are clear to auscultation, respirations are non-labored, breath sounds are equal. No wheezes, stridor, rales, or rhonchi. Musculoskeletal: Normal ROM, no tenderness. Strength 5/5. Sensation intact. Pulses equal bilaterally 2+. Neurological: A&O x 3. CN II-XII intact, There are no obvious motor or sensory deficits. Coordination appears grossly intact. Speech is normal. Skin: Skin is warm and dry and no rashes or lesions are noted. Psychiatric: Cooperative, appropriate mood & affect, normal judgment. Limitations: no limitations Course Vital Signs 08/09/18 12:28 Temperature 96.9 F L Pulse Rate 65 Respiratory 18 Rate Blood Pressure 132/79 O2 Sat by Pulse 98 Oximetry Medical Decision Making - Medical Decision Making Patient's EKG performed at 1237: A 12-lead EKG was performed and interpreted by me as showing the following: Rate is 73, and rhythm is normal sinus. There are normal QRS complexes and normal R-wave progression. ST segments have no elevation or depression, and OK segments appear normal. Patient examined here in the emergency room shows no signs of distress. Patient does admit to passing out after watching his blood being drawn this morning. States he did not eat breakfast believes this may be related. Has normal EKG here in the emergency room. Patient has no complaints at this time. Patient's laboratory up moving around freely. Asymptomatic. Will be discharged home. Disposition Clinical Impression: Vaso vagal episode Disposition: HOME SELF-CARE Condition: Good Instructions (If sedation given, give patient instructions): Syncope (ED) Additional Instructions: Please follow-up with family doctor in the next 2 days of symptoms have not improved. Please return to emergency room if the symptoms increase or worsen or for any other concerns. Is patient prescribed a controlled substance at d/c from ED?: No Referrals: None,Stated [Primary Care Provider] - 1-2 days Time of Disposition: 13:07
== END 2018-08-09 13:28 | disposition home or self-care (01) ==
LOC: EC 12:27
DX: R55 Syncope and collapse (principal); Z87.891 Personal history of nicotine dependence
CPT/HCPCS: 93005; 99284

== ENCOUNTER 2019-01-11 22:27 | Emergency (ER) | payer OTHER ==
[2019-01-11 22:43] VITALS: BP 147/97; PULSE 76; RESP 18; TEMP 97.5
[2019-01-11] MEDS ORDERED: DIPH,PERTUS(ACELL)TETVAC-LF 0.5 ML VIAL IM ONE (23:01)
--- NOTE | 2019-01-11 23:26 | ED ---
General Adult HPI - General Chief complaint: Extremity Injury, Lower Stated complaint: Cement banerjee bilateral ankles Time Seen by Provider: 01/11/19 22:52 Source: patient, RN notes reviewed Mode of arrival: ambulatory Limitations: no limitations - History of Present Illness Initial comments: 33-year-old male presents to the emergency department for a chief complaint of banerjee. Patient states that he was laying spent today and may have scraped his medial ankles on the splint. States he also some scrapes on his knees. States that he went to get them checked out to make sure he was okay. Denies any other injuries. States he did clean the areas thoroughly.Patient has no other complaints at this time including shortness of breath, chest pain, abdominal pain, nausea or vomiting, headache, or visual changes. - Related Data Home Medications Medication Instructions Recorded Confirmed No Known Home Medications 08/09/18 01/11/19 Allergies Allergy/AdvReac Type Severity Reaction Status Date / Time No Known Allergies Allergy Verified 01/11/19 22:51 Review of Systems ROS Statement: Those systems with pertinent positive or pertinent negative responses have been documented in the HPI. ROS Other: All systems not noted in ROS Statement are negative. Past Medical History Additional Past Medical History / Comment(s): insomnia History of Any Multi-Drug Resistant Organisms: None Reported Past Surgical History: Orthopedic Surgery, Tonsillectomy Additional Past Surgical History / Comment(s): right elbow shattered with surgical repair/hardware, perineal cystectomy Past Anesthesia/Blood Transfusion Reactions: No Reported Reaction Past Psychological History: Anxiety, Depression Smoking Status: Former smoker Past Alcohol Use History: None Reported Past Drug Use History: None Reported - Past Family History Mother Additional Family Medical History / Comment(s): Mother is an alcoholic Father Family Medical History: No Reported History Additional Family Medical History / Comment(s): Father is healthy family Family Medical History: No Reported History General Exam Limitations: no limitations General appearance: alert Head exam: Present: atraumatic, normocephalic, normal inspection Eye exam: Present: normal appearance, PERRL, EOMI. Absent: scleral icterus, conjunctival injection, periorbital swelling ENT exam: Present: normal exam, mucous membranes moist Neck exam: Present: normal inspection, full ROM. Absent: tenderness, meningismus, lymphadenopathy Respiratory exam: Present: normal lung sounds bilaterally Cardiovascular Exam: Present: regular rate, normal rhythm, normal heart sounds. Absent: systolic murmur, diastolic murmur, rubs, gallop, clicks Extremities exam: Present: full ROM (Range motion of the bilateral ankles.), normal capillary refill (Capillary refill less than 2 seconds, DP pulses 2+ and equal bilaterally.), other (Patient has 3 small 1 cm x 1 cm abrasions noted to the left medial ankle and 2 small 1 cm x 1 cm abrasions noted to the right medial ankle. Normal abrasion noted to the bilateral knees. No evidence for infection, no erythema or edema.) Neurological exam: Present: alert, oriented X3, CN II-XII intact Psychiatric exam: Present: normal affect, normal mood Course Vital Signs 01/11/19 22:39 Temperature 97.5 F L Pulse Rate 76 Respiratory 18 Rate Blood Pressure 147/97 O2 Sat by Pulse 97 Oximetry Medical Decision Making - Medical Decision Making 33 yr old male presents to the emergency department for banerjee or abrasions after pouring cement. States he was pouring this around noon. States he has abrasions to the bilateral inner ankles. Small superficial abrasions noted to the knee. On exam these are about 1 cm x 1 cm in diameter. Noted to the medial bilateral ankles. These could be related to abrasions or banerjee from the wet cement. At this time no signs of infection as this just occurred today. Patient did already clean the wounds and wash this off his feet. Patient was updated on tetanus. Patient was given antibiotic ointment. Recommended mon itoring for signs of infection. Recommended returning if he is having worsening lesions. He will follow up with primary care otherwise. Disposition Clinical Impression: Abrasion of ankle Disposition: HOME SELF-CARE Condition: Good Instructions (If sedation given, give patient instructions): Abrasion (ED) Additional Instructions: Please apply antibiotic ointment. Follow up with primary care in 1-2 days. Return to the emergency department if you notice any worsening symptoms or signs of infection. Is patient prescribed a controlled substance at d/c from ED?: No Referrals: Carmen Bhat MD [REFERRING] - 1-2 days Time of Disposition: 23:37
== END 2019-01-11 23:59 | disposition home or self-care (01) ==
LOC: EC 22:27
DX: S90.512A Abrasion, left ankle, initial encounter (principal); S90.511A Abrasion, right ankle, initial encounter; S80.212A Abrasion, left knee, initial encounter; S80.211A Abrasion, right knee, initial encounter; Z23 Encounter for immunization; Z87.891 Personal history of nicotine dependence; X58.XXXA Exposure to other specified factors, initial encounter
CPT/HCPCS: 90471; 90715; 99283

== ENCOUNTER 2023-09-02 14:52 | Emergency (ER) | payer OTHER ==
--- NOTE | 2023-09-02 16:19 | ED ---
General Adult HPI - General Chief complaint: Nausea/Vomiting/Diarrhea Stated complaint: Nausea/Vomitting Time Seen by Provider: 09/02/23 15:58 Source: patient, RN notes reviewed Mode of arrival: ambulatory Limitations: no limitations - History of Present Illness Initial comments: 38-year-old male presents to the emergency department for evaluation of nausea, vomiting. Patient states that he received a Wegovy shot yesterday. He notes that since then he has had nausea and vomiting for almost 24 hours. He states that he has had vomiting with the Wegovy shot in the past but it typically does not last this long. He denies any abdominal pain, fever. He notes normal bowel movements and flatulence. - Related Data Previous Rx's Medication Instructions Recorded Ondansetron Odt [Zofran Odt] 4 mg PO Q8HR PRN #9 tab 09/02/23 Allergies Allergy/AdvReac Type Severity Reaction Status Date / Time No Known Allergies Allergy Verified 09/02/23 15:08 Review of Systems ROS Statement: Those systems with pertinent positive or pertinent negative responses have been documented in the HPI. ROS Other: All systems not noted in ROS Statement are negative. Past Medical History Additional Past Medical History / Comment(s): insomnia, History of Any Multi-Drug Resistant Organisms: None Reported Past Surgical History: Orthopedic Surgery, Tonsillectomy Additional Past Surgical History / Comment(s): right elbow shattered with surgical repair/hardware, perineal cystectomy Past Anesthesia/Blood Transfusion Reactions: No Reported Reaction Past Psychological History: Anxiety, Depression Smoking Status: Former smoker Past Alcohol Use History: Occasional Past Drug Use History: Marijuana - Past Family History Mother Additional Family Medical History / Comment(s): Mother is an alcoholic Father Family Medical History: No Reported History Additional Family Medical History / Comment(s): Father is healthy family Family Medical History: No Reported History General Exam Limitations: no limitations General appearance: alert, in no apparent distress Head exam: Present: atraumatic, normocephalic, normal inspection Eye exam: Present: normal appearance, PERRL, EOMI. Absent: scleral icterus, conjunctival injection, periorbital swelling ENT exam: Present: mucous membranes dry Neck exam: Present: normal inspection. Absent: tenderness, meningismus, lymphadenopathy Respiratory exam: Present: normal lung sounds bilaterally. Absent: respiratory distress, wheezes, rales, rhonchi, stridor Cardiovascular Exam: Present: regular rate, normal rhythm, normal heart sounds. Absent: systolic murmur, diastolic murmur, rubs, gallop, clicks GI/Abdominal exam: Present: soft, normal bowel sounds. Absent: distended, tenderness, guarding, rebound, rigid Neurological exam: Present: alert, oriented X3, CN II-XII intact Psychiatric exam: Present: normal affect, normal mood Skin exam: Present: warm, dry, intact, normal color. Absent: rash Course Vital Signs 09/02/23 09/02/23 15:02 19:23 Temperature 97.9 F 98.5 F Pulse Rate 62 85 Respiratory 18 20 Rate Blood Pressure 115/74 130/78 O2 Sat by Pulse 96 97 Oximetry Medical Decision Making - Medical Decision Making Was pt. sent in by a medical professional or institution (, PA, LAND DEVELOPMENT MANAGER, urgent care, hospital, or group home...) When possible be specific @ -No Did you speak to anyone other than the patient for history (EMS, parent, family, police, friend...)? What history was obtained from this source @ -No Did you review nursing and triage notes (agree or disagree)? Why? @ -I reviewed and agree with nursing and triage notes Were old charts reviewed (outside hosp., previous admission, EMS record, old EKG, old radiological studies, urgent care reports/EKG's, group home records)? Report findings @ -No old charts were reviewed Differential Diagnosis (chest pain, altered mental status, abdominal pain women, abdominal pain men, vaginal bleeding, weakness, fever, dyspnea, syncope, headache, dizziness, GI bleed, back pain, seizure, CVA, palpatations, mental health, musculoskeletal)? @ -Differential Abdominal Pain Men: Appendicitis, cholecystitis, diverticulosis, ischemic bowel, pancreatitis, hepatitis, UTI, gastroenteritis, AAA, incarcerated hernia, bowel obstruction, constipation, inflammatory bowel, hepatitis, peptic ulcer disease, splenic infarction, perforated viscus, testicular torsion, this is not meant to be an all-inclusive list EKG interpreted by me (3pts min.). @ -None X-rays interpreted by me (1pt min.). @ -None done CT interpreted by me (1pt min.). @ -None done U/S interpreted by me (1pt. min.). @ -None done What testing was considered but not performed or refused? (CT, X-rays, U/S, labs)? Why? @ -None What meds were considered but not given or refused? Why? @ -None Did you discuss the management of the patient with other professionals (professionals i.e. , [facility], LAND DEVELOPMENT MANAGER, lab, RT, psych nurse, psychotherapist social worker, foreign banknote teller, teacher, control systems drafting officer, casework specialist)? Give summary @ -No Was smoking cessation discussed for >3mins.? @ -No Was critical care preformed (if so, how long)? @ -No Were there social determinants of health that impacted care today? How? (Homelessness, low income, unemployed, alcoholism, drug addiction, transportation, low edu. Level, literacy, decrease access to med. care, longterm, re hab)? @ -No Was there de-escalation of care discussed even if they declined (Discuss DNR or withdrawal of care, Hospice)? DNR status @ -No What co-morbidities impacted this encounter? (DM, HTN, Smoking, COPD, CAD, Cancer, CVA, ARF, Chemo, Hep., AIDS, mental health diagnosis, sleep apnea, morbid obesity)? @ -None Was patient admitted / discharged? Hospital course, mention meds given and route, prescriptions, significant lab abnormalities, going to OR and other pertinent info. @ -Discharge. Patient presented to the emergency department for nausea and vomiting. Patient states that he received a Wegovy shot and this started after that. He denies any abdominal pain, fever. Laboratory studies obtained.CBC unremarkable; CMP shows normal lipase, LFTs, bilirubin 2.1; UA shows 2+ protein, 3+ ketones likely due to dehydration. Patient was provided 2 L of normal saline, IV Zofran. Patient is feeling much better after this. He has not had any further episodes of vomiting in the emergency department. Patient will be provided Zofran for at home. Patient will be discharged home. Patient understanding agreeable with plan. Patient stable at time of discharge. Case discussed with Dr. Diaz. Undiagnosed new problem with uncertain prognosis? @ -No Drug Therapy requiring intensive monitoring for toxicity (Heparin, Nitro, Insulin, Cardizem)? @ -No Were any procedures done? @ -No Diagnosis/symptom? @ -Nausea and vomiting Acute, or Chronic, or Acute on Chronic? @ -Acute Uncomplicated (without systemic symptoms) or Complicated (systemic symptoms)? @ -Uncomplicated Side effects of treatment? @ -No Exacerbation, Progression, or Severe Exacerbation? @ -No Poses a threat to life or bodily function? How? (Chest pain, USA, CT, pneumonia, PE, COPD, DKA, ARF, appy, cholecystitis, CVA, Diverticulitis, Homicidal, Suicidal, threat to staff... and all critical care pts) @ -No - Lab Data Result diagrams: 09/02/23 16:48 09/02/23 16:48 Lab Results 09/02/23 09/02/23 09/02/23 Range/Units 16:48 16:48 17:43 WBC 9.4 (3.8-10.6) k/uL RBC 4.61 (4.30-5.90) m/uL Hgb 14.2 (13.0-17.5) gm/dL Hct 41.7 (39.0-53.0) % MCV 90.6 (80.0-100.0) fL MCH 30.8 (25.0-35.0) pg MCHC 34.0 (31.0-37.0) g/dL RDW 12.8 (11.5-15.5) % Plt Count 178 (150-450) k/uL MPV 8.8 Neutrophils % 81 % Lymphocytes % 11 % Monocytes % 6 % Eosinophils % 1 % Basophils % 0 % Neutrophils # 7.6 (1.3-7.7) k/uL Lymphocytes # 1.1 (1.0-4.8) k/uL Monocytes # 0.5 (0-1.0) k/uL Eosinophils # 0.1 (0-0.7) k/uL Basophils # 0.0 (0-0.2) k/uL Sodium 140 (137-145) mmol/L Potassium 3.9 (3.5-5.1) mmol/L Chloride 103 (98-107) mmol/L Carbon Dioxide 27 (22-30) mmol/L Anion Gap 10 mmol/L BUN 12 (9-20) mg/dL Creatinine 0.59 L (0.66-1.25) mg/dL Est GFR (CKD-EPI)AfAm >90 (>60 ml/min/1.73 sqM) Est GFR (CKD-EPI)NonAf >90 (>60 ml/min/1.73 sqM) Glucose 83 (74-99) mg/dL Calcium 9.6 (8.4-10.2) mg/dL Total Bilirubin 2.1 H (0.2-1.3) mg/dL AST 29 (17-59) U/L ALT 27 (4-49) U/L Alkaline Phosphatase 47 (38-126) U/L Total Protein 6.8 (6.3-8.2) g/dL Albumin 4.3 (3.5-5.0) g/dL Lipase 156 (23-300) U/L Urine Color Yellow Urine Appearance Clear (Clear) Urine pH 8.5 H (5.0-8.0) Ur Specific Wood 1.033 (1.001-1.035) Urine Protein 2+ H (Negative) Urine Glucose (UA) Negative (Negative) Urine Ketones 3+ H (Negative) Urine Blood Negative (Negative) Urine Nitrite Negative (Negative) Urine Bilirubin Negative (Negative) Urine Urobilinogen 2.0 (<2.0) mg/dL Ur Leukocyte Esterase Negative (Negative) Urine RBC 1 (0-5) /hpf Urine WBC 1 (0-5) /hpf Urine Mucus Many H (None) /hpf Disposition Clinical Impression: Dehydration, Nausea & vomiting Disposition: HOME SELF-CARE Condition: Stable Instructions (If sedation given, give patient instructions): Acute Nausea and Vomiting (ED) Additional Instructions: Please follow up with your primary care provider. Return to the emergency department for new or worsening symptoms. Prescriptions: Ondansetron Odt [Zofran Odt] 4 mg PO Q8HR PRN #9 tab PRN Reason: Nausea Is patient prescribed a controlled substance at d/c from ED?: No Referrals: Jarod Esparza MD [Primary Care Provider] - 1-2 days
[2023-09-02] MEDS: SODIUM CHLORIDE 0.9% 2,000 ML IV STA (16:41)
[2023-09-02] MEDS: ONDANSETRON 4 MG/2 ML VIAL IVP STA (16:41)
[2023-09-02 17:06] LABS: Basophils % (A) 0 %; Eosinophils # (A) 0.1 k/uL (0-0.7); Eosinophils % (A) 1 %; HCT 41.7 % (39.0-53.0); HGB 14.2 gm/dL (13.0-17.5); Lymphocytes # (A) 1.1 k/uL (1.0-4.8); Lymphocytes % (A) 11 %; MCH 30.8 pg (25.0-35.0); MCV 90.6 fL (80.0-100.0); Mean Platelet Volume 8.8; Monocytes # (A) 0.5 k/uL (0-1.0); Monocytes % (A) 6 %; Neutrophils # (A) 7.6 k/uL (1.3-7.7); Neutrophils % (A) 81 %; Platelet Count 178 k/uL (150-450); RBC 4.61 m/uL (4.30-5.90); RDW 12.8 % (11.5-15.5); WBC 9.4 k/uL (3.8-10.6)
[2023-09-02 17:18] LABS: ALT 27 U/L (4-49); AST 29 U/L (17-59); African American GFR (CKD) >90 (>60 ml/min/1.73 sqM); Albumin 4.3 g/dL (3.5-5.0); Alkaline Phosphatase 47 U/L (38-126); Anion Gap 10 mmol/L; Blood Urea Nitrogen 12 mg/dL (9-20); Calcium 9.6 mg/dL (8.4-10.2); Carbon Dioxide 27 mmol/L (22-30); Chloride 103 mmol/L (98-107); Glucose 83 mg/dL (74-99); Lipase 156 U/L (23-300); Non-African American GFR(CKD) >90 (>60 ml/min/1.73 sqM); Potassium 3.9 mmol/L (3.5-5.1); Sodium 140 mmol/L (137-145); Total Bilirubin 2.1 mg/dL (0.2-1.3); Total Protein 6.8 g/dL (6.3-8.2)
[2023-09-02 17:52] LABS: Appearance,Urine Clear (Clear); Bilirubin,Urine Negative (Negative); Blood,Urine Negative (Negative); Color,Urine Yellow; Glucose,Urine (UA) Negative (Negative); Ketones,Urine 3+ (Negative); Leukocyte Esterase,Urine Negative (Negative); Mucus,Urine Many /hpf; Nitrite,Urine Negative (Negative); PH, Urine 8.5 (5.0-8.0); Protein,Urine 2+ (Negative); RBC,Urine 1 /hpf (0-5); Specific Gravity,Urine 1.033 (1.001-1.035); WBC,Urine 1 /hpf (0-5)
[2023-09-02] MEDS: ONDANSETRON 4 MG ODT STARTER PACK 2 TAB BTL PO STA (19:23)
[2023-09-02 19:33] VITALS: BP 130/78; PULSE 85; RESP 20; TEMP 98.5
== END 2023-09-02 19:27 | disposition home or self-care (01) ==
LOC: EC 14:52
DX: E86.0 Dehydration (principal); Z87.891 Personal history of nicotine dependence; F12.90 Cannabis use, unspecified, uncomplicated
CPT/HCPCS: 36415; 80053; 83690; 85025; 81001; 99284; 96374; 96361 ×2; J2405